=== PATIENT | male | born 1945 | race Caucasian/White ===

== ENCOUNTER → 2018-04-01 | Day surgery (SDC) | payer OTHER ==
[~2018-04-01] VITALS: Ht 177.8 cm; Wt 93.0 kg
[~2018-04-01] MED LIST: BENICAR20 M1 PO; PAROXETINE HCL20 M1 PO
--- NOTE | 2018-04-01 08:55 | RADIOLOGY REPORT ---
EXAMINATION: XR ABDOMEN CLINICAL INDICATION: 73-year-old male with clinical diagnoses of foreign body in the rectum. COMPARISON: None TECHNIQUE: AP view of the abdomen. FINDINGS: Linear radiolucency is identified projecting within the pelvis at midline, measures approximately 9.0 x 5.7 cm at its maximum craniocaudal by transverse dimension, likely represent the clinically known foreign body. The bowel loops are decompressed. Significant fecal residual is noted within the large bowel. IMPRESSION: Midline abnormal radiolucency within the pelvis, consistent with clinically suspected radiolucent foreign body.
--- NOTE | 2018-04-01 11:09 | ED GI/GU/ABDOMINAL COMPLAINT ---
History of Present Illness General Chief Complaint: General Adult Stated Complaint: FOREIGN OBJECT IN RECTUM Source: patient Exam Limitations: no limitations Vital Signs & Intake/Output Vital Signs & Intake/Output Vital Signs Date Time Temp Pulse Resp B/P B/P Pulse O2 O2 Flow FiO2 Mean Ox Delivery Rate 04/01 1510 98.0 89 20 143/68 98 Room Air 04/01 1433 98.3 04/01 1300 98.3 04/01 1255 98.3 80 22 140/63 99 Room Air ED Intake and Output 04/02 0000 04/01 1200 Intake Total 1000 0 Output Total 1050 Balance -50 0 Intake, IV 1000 Intake, Oral 0 Output, Urine 1050 Patient 205 lb Weight Allergies Coded Allergies: No Known Allergies (04/01/18) Reconcile Medications Olmesartan Medoxomil (Benicar) 20 MG TABLET 1 TAB PO DAILY HEART (Reported) Paroxetine HCl 20 MG TABLET 1 TAB PO DAILY GI (Reported) Triage Note: PT TO ED FOR SMALL GLASS BOTTLE STUCK IN RECTUM X 2 HOURS WITH BLEEDING. PT DENIES BOTTLE BEING BROKEN. NO PROFUSE BLEEDING NOTED IN TRIAGE. Triage Nurses Notes Reviewed? yes Onset: Abrupt Duration: hour(s):, constant, continues in ED, getting worse Timing: single episode today Quality/Severity: sharpness, severe Location: rectum HPI: pt presents for eval of rectal foreign body. Patient states that he has a glass bottle in his rectum and it's interfering with his ability to urinate. Past History Travel History Traveled to [place] past 21 day No Medical History Any Pertinent Medical History? see below for history Cardiovascular: hypertension Gastrointestinal: GERD Psychiatric: anxiety BACKEND TESTER/Reproductive: BPH Surgical History Surgical History: non-contributory Psychosocial History What is your primary language Mont[place]erratian Tobacco Use: Quit >30 days ago ETOH Use: denies use Illicit Drug Use: denies illicit drug use Family History Hx Contributory? No Review of Systems Review of Systems Constitutional: Reports: no symptoms. EENTM: Reports: no symptoms. Respiratory: Reports: no symptoms. Cardiovascular: Reports: no symptoms. GI: Reports: see HPI. Genitourinary: Reports: no symptoms. Musculoskeletal: Reports: no symptoms. Skin: Reports: no symptoms. Neurological/Psychological: Reports: no symptoms. Hematologic/Endocrine: Reports: no symptoms. Immunologic/Allergic: Reports: no symptoms. All Other Systems: Reviewed and Negative Physical Exam Physical Exam Gastrointestinal: see below Comments: Gen.: Well-nourished, well-developed, no acute respiratory distress. Head: Normocephalic, atraumatic. Eyes: Normal inspection bilaterally Ears: Normal inspection bilaterally Nose: Normal inspection Throat/mouth : Moist mucosa Neck: Supple, full range of motion, no goiter Lungs: Quiet respirations Back: Normal range of motion Extremities: Normal range of motion grossly, no cyanosis clubbing or edema of the upper extremities Neurologic: Cranial nerves grossly intact, speech is clear Skin: warm and dry Psychiatric: Calm, cooperative, no apparent delusions or hallucinations Rectum: Digital rectal examination reveals a hard foreign body with reddish stool residue Core Measures ACS in differential dx? No Sepsis Present: No Sepsis Focused Exam Completed? No Progress Differential Diagnosis: RECTAL FOREIGN BODY, URINARY RETENTION, INTESTINAL PERFORATION, OBSTRUCTION Plan of Care: Orders Procedure Date/time Status Fuller, Insertion/Removal/Asses 04/01 1558 Active CULTURE,URINE 04/01 1558 Active EKG 04/01 1336 Active Straight Cath 04/01 1300 Active PROTHROMBIN TIME 04/01 1258 Complete CBC WITHOUT DIFFERENTIAL 04/01 1258 Complete BASIC METABOLIC PANEL 04/01 1258 Complete Laboratory Tests 04/01/18 1315: Anion Gap 12, Estimated GFR 46 L, BUN/Creatinine Ratio 18.7, Glucose 113 H, Calcium 9.8, PT 11.7, INR 1.07, CBC w Diff NO MAN DIFF REQ, RBC 4.62 L, MCV 92.2, MCH 31.2 H, MCHC 33.8, RDW 13.6, MPV 8.3, Gran % 85.3 H, Lymphocytes % 6.6 L, Monocytes % 7.7, Eosinophils % 0.2, Basophils % 0.2, Absolute Granulocytes 11.0 H, Absolute Lymphocytes 0.9 L, Absolute Monocytes 1.0 H, Absolute Eosinophils 0, Absolute Basophils 0 Microbiology 04/01 1559 URINE ROUT: Urine Culture - RES Initial ED EKG: NSR Comments: 04/01/2018 12:57:00 PM I have been unable to speak with the on-call surgeon. I am paging the surgical PA. I will also obtain a CAT scan of the abdomen and pelvis to better assess the foreign body and the possibility of perforation. 04/01/2018 3:43:48 PM Ramiro has been evaluated by Dr. Anne and is being called to the operating room. Departure Departure Disposition: STILL A PATIENT Condition: Stable Clinical Impression Primary Impression: Rectal foreign body Qualifiers: Encounter type: initial encounter Qualified Code: T18.5XXA - Foreign body in anus and rectum, initial encounter Referrals: Jacinta WARD,Vince Aguirre (PCP/Family) Departure Forms: Customer Survey General Discharge Information OR/GI Note Spoke With: Omid WARD,Froylan Schrader ED Treatment Decision: RAMIRO PALMA requires urgent operative management or an emergent procedure that cannot be performed in the Emergency Room setting. Transport To: [facility]
[2018-04-01 13:37] LABS: PT 11.7 SEC (9.4-12.5)
[2018-04-01 13:39] LABS: ABSOLUTE BASOPHIL COUNT 0 /CUMM (0.0-0.2); ABSOLUTE EOSINOPHIL COUNT 0 /CUMM (0.0-0.7); ABSOLUTE LYMPH COUNT 0.9 /CUMM (1.2-3.4); BASOPHIL % 0.2 % (0.0-2.0); EOSINOPHIL % 0.2 % (0-5); HEMATOCRIT 42.6 % (42-52); MEAN CORPUSCULAR HGB 31.2 PG (27.0-31.0); MEAN CORPUSCULAR HGB CONC 33.8 G/DL (33.0-37.0); MEAN CORPUSCULAR VOLUME 92.2 FL (80.0-94.0); MEAN PLATELET VOLUME 8.3 FL (7.4-10.4); PLATELET COUNT 172 /CUMM (130-400); RBC DISTRIBUTION WIDTH 13.6 % (11.5-14.5); RED BLOOD CELL CT 4.62 /CUMM (4.70-6.10); WHITE BLOOD CELL COUNT 12.9 /CUMM (4.8-10.8)
[2018-04-01 13:56] LABS: GRANULOCYTE % 85.3 % (42.2-75.2)
--- NOTE | 2018-04-01 14:42 | History & Physical Pre-Op ---
General Information and HPI History of Present Illness: Patient presents for evaluation of rectal foreign body. He was intrumenting his rectum with [place] cream jar and it "slipped in" beyond his grasp. He attempted retrieval but was unsuccessful. Denies abdominal pain. Notes acute urinary retention relieved by nursing catheterization. Allergies/Medications Allergies: Coded Allergies: No Known Allergies (04/01/18) Home Med list Olmesartan Medoxomil (Benicar) 20 MG TABLET 1 TAB PO DAILY HEART (Reported) Paroxetine HCl 20 MG TABLET 1 TAB PO DAILY GI (Reported) Past History Medical History Cardiovascular: hypertension Gastrointestinal: GERD Psychiatric: anxiety CNC SPECIALIST/Reproductive: BPH Surgical History Pertinent Surgical History: none Past Family/Social History Psychosocial History Smoking Status: Never Smoked ETOH Use: denies use Illicit Drug Use: denies illicit drug use Review of Systems Review of Systems: no chest pain or dyspnea on exertion. no abdominal pain. urinary retention present. no msk c/o. no neurologic deficits. remainder 12 points neg. Exam & Diagnostic Data Last 24 Hrs of Vital Signs/I&O Vital Signs Date Time Temp Pulse Resp B/P B/P Pulse O2 O2 Flow FiO2 Mean Ox Delivery Rate 04/01 1433 98.3 04/01 1300 98.3 04/01 1255 98.3 80 22 140/63 99 Room Air 04/01 0758 96.8 97 15 160/84 160 Room Air Room Air Intake & Output 04/01 1600 04/01 0800 04/01 0000 Intake Total 1000 Output Total 700 Balance 300 Intake, IV 1000 Intake, Oral 0 Output, Urine 700 Patient 205 lb Weight Physical Exam: Gen; NAD, normal habitus. a/o x 3 heent; anicteric, perrl, eomi neck; supple, no adenopathy, no jvd. chest, clear bilaterally without wheeze cor; rrr, no murmurs abd; soft, nt, nd, no mass rectal: large palpable foreign body. wide based and difficult to grasp. ext; no c/c/e. Last 24 Hrs of Labs/[place]: Laboratory Tests 04/01/18 1315: Anion Gap 12, Estimated GFR 46 L, BUN/Creatinine Ratio 18.7, Glucose 113 H, Calcium 9.8, PT 11.7, INR 1.07, CBC w Diff NO MAN DIFF REQ, RBC 4.62 L, MCV 92.2, MCH 31.2 H, MCHC 33.8, RDW 13.6, MPV 8.3, Gran % 85.3 H, Lymphocytes % 6.6 L, Monocytes % 7.7, Eosinophils % 0.2, Basophils % 0.2, Absolute Granulocytes 11.0 H, Absolute Lymphocytes 0.9 L, Absolute Monocytes 1.0 H, Absolute Eosinophils 0, Absolute Basophils 0 Assessment/Plan Assessment/Plan: Rectal foreign body. It is a glass jar. Very wide and difficult to grasp. Do no recommend removal at bedside. It would be best accomplished in OR under anesthesia. As Ranked By This Provider Problem List: 1. Rectal foreign body Copies To: Jacinta WARD,Vince Aguirre
[2018-04-01 15:10] VITALS: BP 143/68
--- NOTE | 2018-04-01 18:02 | Operative Report ---
Operative/Inv Procedure Report Surgery Date: 04/01/18 Name of Procedure: OPERATIVE EXTRACTION OF RECTAL FOREIGN BODY Pre-Operative Diagnosis: RECTAL FOREIGN BODY Post-Operative Diagnosis: SAME Estimated Blood Loss: scant Surgeon/[employer] Account Executive: ANAHI POLLARD MD Anesthesia: local monitored anesthesi Operative/Procedure Note Note: patient brought to OR and laid supine. sedation obtained and lithotomy postion. digital rectal exam revealed large cap of lotion lid. it could not be extracted manually due to slippery nature and width. it was eventually grasped with sharp towel clips on the plastic lid. we were able to get one on each side of the lid with assistance of miguel ledezma retractor. then it could be extracted. There was mild tearing of anal mucosa. marcaine was placed around the anus at conclusion. procedure tolerated well. CC: Jacinta WARD,Vince Aguirre
== END ==
LOC: ERH 07:48 → ER-OR 08:05 → ERH 08:05 → ER-OR 16:59 → STS 16:59
PROVIDERS: Emergency Medicine
DX: T18.5XXA Foreign body in anus and rectum, initial encounter (principal); X58.XXXA Exposure to other specified factors, initial encounter; I10 Essential (primary) hypertension; K21.9 Gastro-esophageal reflux disease without esophagitis; N40.0 Benign prostatic hyperplasia without lower urinary tract symptoms
CPT/HCPCS: 74018; 87086; 93005; 93010; 96365; J0131